=== PATIENT | male | born 1960 | race Caucasian/White ===

== ENCOUNTER 2018-05-31 10:55 | Inpatient (IN) ==
[2018-05-31] MEDS ORDERED: Dextrose 5%/NaCl 0.9% Inj 1,000 ML IV.CONT SCH (13:30)
[2018-05-31] MEDS ORDERED: Sodium Phosphate Inj 15 MMOL in Sodium Chlor 0.9% Inj 100 ML IV.SIG PRN (13:30)
[2018-05-31] MEDS ORDERED: Potassium Chlor 20 mEq Premix 20 MEQ/100 ML PIGGYBACK IV.SIG PRN ×6 (13:30)
[2018-05-31] MEDS ORDERED: Potassium Chlor 40 mEq Premix 40 MEQ/100 ML PIGGYBACK IV.SIG PRN ×2 (13:30)
[2018-05-31] MEDS ORDERED: Sod Chloride 0.9% Inj 1,000 ML IV.CONT SCH (13:30)
[2018-05-31] MEDS ORDERED: Insulin Regular (For Infusion) 100 UNIT in Sodium Chlor 0.9% Inj 99 ML IV.CONT PRN (13:30)
--- NOTE | 2018-05-31 13:39 | P.HP ---
History of Present Illness Inpatient Certification: I certify that the inpatient services were ordered in accordance with Medicare regulations governing the order. This includes certification that hospital inpatient services are reasonable and necessary and in the case of services not specified as inpatient-only under 42 CFR 419.22(n), that they are appropriately provided as inpatient services in accordance to with the 2-midnight benchmark under 43 CFR 412.3(e) Estimated Total Length of Stay (Days): 2 Plans for Post Hospital Care: Home [facility] - History History Provided By: Patient - Medical History Medical History: Medical History (Last Updated 05/31/18 @ 11:41 by Micheline Ceron RN) CAD (coronary artery disease) E. coli infection Heart attack High cholesterol Hypertension - Surgical History Surgical History: Surgical History (Last Updated 05/31/18 @ 11:41 by Micheline Ceron RN) History of knee surgery History of neck surgery - Tobacco History Second Hand Smoke Exposure: Yes Smoking Status: Current every day smoker Tobacco Type: Cigarettes - Alcohol History How Often Do You Have a Drink Containing Alcohol: Never - Substance Use History Substance History: Active Abuse Medications and Allergies Allergies Allergy/AdvReac Type Severity Reaction Status Date / Time No Known Allergies Allergy Verified 05/31/18 11:24 Home Medications Medication Instructions Recorded Confirmed Type hydrocodone-acetaminophen 1 tab PO Q6H 05/31/18 05/31/18 History lisinopril 5 mg PO DAILY 05/31/18 05/31/18 History pravastatin 20 mg PO DAILY 05/31/18 05/31/18 History sertraline 50 mg PO DAILY 05/31/18 05/31/18 History tamsulosin [Flomax] 0.4 mg PO DAILY 05/31/18 05/31/18 History Caprini VTE Risk Assessment Caprini Risk Assessment Model: Point Value = 1 Point Value = 2 Point Value = 3 Point Value = 5 Age 41-60 Minor surgery BMI > 25 kg/m2 Swollen legs Varicose veins or History of unexplained or recurrent spontaneous Oral contraceptives or hormone replacement Sepsis (< 1 month) Serious lung disease, including pneumonia (< 1 month) Abnormal pulmonary function Acute myocardial infarction Congestive heart failure (< 1 month) History of inflammatory bowel disease Medical patient at bed rest Age 61-74 Arthroscopic surgery Major open surgery (> 45 min) Laparoscopic surgery (> 45 min) Malignancy Confined to bed (> 72 hours) Immobilizing plaster cast Central venous access Age >= 75 History of VTE Family history of VTE Factor V Leiden Prothrombin [id number] Lupus anticoagulant Anticardiolipin antibodies Elevated serum homocysteine Heparin-induced thrombocytopenia Other congenital or acquired thrombophilia Stroke (< 1 month) Elective arthroplasty Hip, pelvis, or leg fracture Acute spinal cord injury (< 1 month) Prophylaxis Regimen: Total Risk Factor Score Risk Level Prophylaxis Regimen 0-1 Low Early ambulation 2 Moderate Order ONE of the following: *Sequential Compression Device (SCD) *Heparin 5000 units SQ BID 3-4 Higher Order ONE of the following medications: *Heparin 5000 units SQ TID *Enoxaparin/Lovenox 40 mg SQ daily (WT < 150 kg, CrCl > 30 mL/min) *Enoxaparin/Lovenox 30 mg SQ daily (WT < 150 kg, CrCl > 10-29 mL/min) *Enoxaparin/Lovenox 30 mg SQ BID (WT < 150 kg, CrCl > 30 mL/min) AND/OR *Sequential Compression Device (SCD) 5 or more Highest Order ONE of the following medications: *Heparin 5000 units SQ TID (Preferred with Epidurals) *Enoxaparin/Lovenox 40 mg SQ daily (WT < 150 kg, CrCl > 30 mL/min) *Enoxaparin/Lovenox 30 mg SQ daily (WT < 150 kg, CrCl > 10-29 mL/min) *Enoxaparin/Lovenox 30 mg SQ BID (WT < 150 kg, CrCl > 30 mL/min) AND *Sequential Compression Device (SCD)
[2018-05-31] MEDS ORDERED: Bisacodyl 10 MG Supp RECTAL PRN (17:42)
[2018-05-31] MEDS ORDERED: Acetaminophen 325 MG Tablet PO PRN (17:42)
[2018-05-31] MEDS ORDERED: Dextrose 50% in Water 50 ML Vial IV.PUSH PRN (17:44)
[2018-05-31] MEDS ORDERED: Enoxaparin Inj 40 MG/0.4 ML Syringe SQ SCH (20:00)
[2018-05-31] MEDS ORDERED: Insulin Detemir Inj 1,000 UNIT/10 ML Vial SQ SCH (21:00)
[2018-05-31 21:06] LABS: Chloride 101 meq/L (98-107); Potassium 3.9 meq/L (3.5-5.1); Sodium 135 meq/L (136-145)
[2018-05-31] MEDS: Insulin NovoLOG Aspart Correctional Sugar Inj SQ SCH (21:09)
[2018-05-31] MEDS: Sod Chloride 0.9% Inj 1,000 ML IV.CONT SCH (21:10)
[2018-05-31 21:20] LABS: Anion Gap 12 meq/L (5-15); Beta Hydroxybutyric Acid 4.03 mmol/L (0.00-0.39); Blood Urea Nitrogen 8 mg/dL (7-18); Calcium 7.4 mg/dL (8.5-10.1); Carbon Dioxide 21.7 meq/L (21.0-32.0); Glomerular Filtration Rate Greater Than 89 mL/min (>89); Glucose,Random 323 mg/dL (74-106); Magnesium 1.7 mg/dL (1.5-2.5)
[2018-05-31 21:51] LABS: Calcium-Albumin Corrected 8.2 mg/dL (8.5-10.1); Total Protein 5.6 g/dL (6.4-8.2)
[2018-06-01] MEDS: Mag Sulf 1 gm/100 ml Premix 100 ML IV.SIG SCH ×2 (00:09→00:50)
[2018-06-01] MEDS ORDERED: Chlorhexidine Gluconate 2% 1 Pack (2 Cloths) TOPICAL PRN (04:00)
[2018-06-01] MEDS ORDERED: Chlorhexidine Gluconate 2% 1 Pack (2 Cloths) TOPICAL SCH (04:00)
[2018-06-01 05:05] VITALS: O2SAT 98
[2018-06-01] MEDS: Sod Chloride 0.9% Inj 1,000 ML IV.CONT SCH (05:13)
[2018-06-01 06:02] LABS: Chloride 101 meq/L (98-107); Potassium 3.5 meq/L (3.5-5.1); Sodium 134 meq/L (136-145)
[2018-06-01 06:14] LABS: Anion Gap 8 meq/L (5-15); Blood Urea Nitrogen 6 mg/dL (7-18); Calcium 7.2 mg/dL (8.5-10.1); Carbon Dioxide 25.4 meq/L (21.0-32.0); Glomerular Filtration Rate Greater Than 89 mL/min (>89); Glucose,Random 262 mg/dL (74-106)
[2018-06-01 06:59] LABS: Total Protein 5.6 g/dL (6.4-8.2)
[2018-06-01] MEDS: Insulin NovoLOG Aspart Correctional Sugar Inj SQ SCH ×2 (08:17→11:57)
[2018-06-01 09:40] VITALS: TEMP 98.3
[2018-06-01 13:07] VITALS: PULSE 72
--- NOTE | 2018-06-01 13:19 | P.HP ---
History of Present Illness Service: Hospitalist Primary Care Physician: UNKNOWN Chief Complaint: Generalized weakness. History of Present Illness: Mr. Marie is a 57-year-old male with a history of CAD, diabetes mellitus, hypertension and chronic back pain who presented to the emergency department in [place] due to generalized weakness. He was found to have DKA with blood glucose over 500. Patient did not have any chest pain, abdominal pain, shortness of breath or fever or chills. Patient was not transferred to [place] until evening and we were not able to see patient on 05/31/2018. Patient was seen in the morning on 06/01/2018. At the time of this interview, patient is doing well. He is tolerating diet well. Denies any acute concerns. He has an appointment with his primary care provider in a week. He would like to go home. Past medical history: CAD, diabetes mellitus, chronic back pain, hypertension Past surgical history: Knee surgery, cervical fusion Social history: Patient continues to smoke but cutting down to 2 cigarettes a day. Denies using any illicit drugs or alcohol. Family history: Dad had ESRD, mother had cancer. Inpatient Certification: I certify that the inpatient services were ordered in accordance with Medicare regulations governing the order. This includes certification that hospital inpatient services are reasonable and necessary and in the case of services not specified as inpatient-only under 42 CFR 419.22(n), that they are appropriately provided as inpatient services in accordance to with the 2-midnight benchmark under 43 CFR 412.3(e) Estimated Total Length of Stay (Days): 2 Plans for Post Hospital Care: Home Review of Systems All other systems reviewed negative except as stated in HPI [facility] - History History Provided By: Patient - Medical History Medical History: Medical History (Last Reviewed 06/01/18 @ 14:02 by Lilia Marks DO) CAD (coronary artery disease) E. coli infection Heart attack High cholesterol Hypertension - Surgical History Surgical History: Surgical History (Last Reviewed 06/01/18 @ 14:02 by Lilia Marks DO) History of knee surgery History of neck surgery - Tobacco History Second Hand Smoke Exposure: No Tobacco Use In Past 30 Days: No Smoking Status: Current every day smoker Tobacco Type: Cigarettes - Alcohol History How Often Do You Have a Drink Containing Alcohol: Never - Substance Use History Substance History: Active Abuse Medications and Allergies Active Medications: Active Medications Acetaminophen (Tylenol) 650 mg PO Q4H PRN PRN Reason: Headache, fever, pain 1-4 Last Admin: 06/01/18 01:13 Dose: 650 mg Al Hydroxide/Mg Hydroxide (Milk Of Magnesia Liq) 30 ml PO Q12H PRN PRN Reason: Mild Constipation Bisacodyl (Dulcolax Supp) 10 mg RECTAL DAILY PRN PRN Reason: SEVERE CONSITIPATION Chlorhexidine Gluconate (Chlorhexidine 2% Cloth) 3 pack TOPICAL DAILY@0400 [facility] Stop: 06/06/18 03:59 Last Admin: 06/01/18 05:10 Dose: 3 pack Chlorhexidine Gluconate (Chlorhexidine 2% Cloth) 3 pack TOPICAL DAILY@0400 PRN PRN Reason: Extra cloth needed Stop: 06/06/18 03:59 Dextrose (D50w Vial) 50 ml IV.PUSH UNSCH PRN PRN Reason: PER HYPOGLYCEMIA PROTOCOL Enoxaparin Sodium (Lovenox Inj) 40 mg SQ Q24H [facility] Last Admin: 05/31/18 21:08 Dose: 40 mg Glucagon (Glucagon Inj) 1 mg OTHER PRN PRN PRN Reason: for Hypoglycemia Protocol Sodium Chloride (Ns Inj) 1,000 mls @ 100 mls/hr IV.CONT .Q10H [facility] Stop: 06/01/18 17:44 Last Admin: 06/01/18 05:13 Dose: 100 mls/hr Insulin Aspart (Novolog Insulin Correctional Sugar Inj) 0 unit SQ ACHS [facility]; Protocol Last Admin: 06/01/18 11:57 Dose: 7 unit Insulin Detemir (Levemir Inj) 7 unit SQ HS [facility] Last Admin: 05/31/18 21:08 Dose: 7 unit Lactulose (Lactulose Liq) 30 ml PO DAILY PRN PRN Reason: SEVERE CONSITIPATION Ondansetron HCl (Zofran Inj) 4 mg IV.PUSH Q6H PRN PRN Reason: NAUSEA OR VOMITING Sennosides (Senokot) 17.2 mg PO Q12H PRN PRN Reason: Moderate Constipation Allergies Allergy/AdvReac Type Severity Reaction Status Date / Time No Known Allergies Allergy Verified 05/31/18 11:24 Home Medications Medication Instructions Recorded Confirmed Type hydrocodone-acetaminophen 1 tab PO Q6H 05/31/18 05/31/18 History lisinopril 5 mg PO DAILY 05/31/18 05/31/18 History pravastatin 20 mg PO DAILY 05/31/18 05/31/18 History sertraline 50 mg PO DAILY 05/31/18 05/31/18 History tamsulosin [Flomax] 0.4 mg PO DAILY 05/31/18 05/31/18 History Exam Vital signs: Vital Signs 05/31/18 20:00 06/01/18 00:00 06/01/18 04:00 Temperature 98.2 F 97.8 F 98.4 F Pulse Rate 70 62 66 Respiratory Rate 20 20 20 Blood Pressure 106/64 105/65 114/71 Pulse Oximetry 96 99 98 06/01/18 07:00 06/01/18 08:00 06/01/18 08:06 Temperature 98.3 F Pulse Rate 70 64 70 Respiratory Rate 14 10 L 10 L Blood Pressure 126/83 126/83 Pulse Oximetry 06/01/18 09:59 Temperature Pulse Rate 72 Respiratory Rate 17 Blood Pressure 110/66 Pulse Oximetry Intake & Output 05/31/18 06/01/18 06/01/18 18:59 06:59 18:59 Intake Total 192 / 1920 Balance 1920 / 1920 Weight 66.1 kg Intake: IV 1200 / 1200 NS Inj 1,000 ML @ 100 mls/hr IV 1000 / 1000 .CONT .Q10H [facility] Rx#:[id number] Magnesium Sulfate 1 gm/D5W 100 200 / 200 ml Premix 100 ML @ 100 mls/hr IV.SIG Q1H [facility] Rx#:[id number] Oral 720 / 720 Other: Post Void Residual 900 # Voids 3 Weight On Admission 66.1 kg Narrative: GENERAL: This is a well-nourished, well-developed patient, in no apparent distress. SKIN: No rashes, ecchymoses or lesions. Warm and dry. HEAD: Atraumatic. Normocephalic. No temporal or scalp tenderness. EYES: Pupils equal round and reactive. No injection or drainage. ENT: Nose without bleeding, purulent drainage or septal hematoma. Airway patent. NECK: Trachea midline. No lymphadenopathy. Supple, nontender, no meningeal signs. CARDIOVASCULAR: Regular rate and rhythm without murmurs, gallops, or rubs. No JVD. RESPIRATORY: Clear to auscultation. Breath sounds equal bilaterally. No wheezes , rales, or rhonchi. GASTROINTESTINAL: Abdomen soft, non-tender, nondistended. No guarding. MUSCULOSKELETAL: Extremities without clubbing, cyanosis, or edema. NEUROLOGICAL: Awake and alert. Cranial nerves II through XII intact. No focal neurological deficits. Normal speech. Results - Labs CBC & Chem 7: 06/01/18 05:35 Labs: Laboratory Results - last 24 hr 05/31/18 05/31/18 06/01/18 20:20 22:40 05:35 Sodium 135 L 134 L Potassium 3.9 3.5 Chloride 101 101 Carbon Dioxide 21.7 25.4 Anion Gap 12 8 BUN 8 6 L Creatinine 0.58 L 0.60 Estimated GFR Greater than 89 Greater than 89 POC Glucose Random Glucose 323 H 262 H Calcium 7.4 L* 7.2 L* Prot Corrected Calcium 8.2 L 8.0 L Magnesium 1.7 Total Protein 5.6 L 5.6 L Beta-Hydroxybutyric Acd 4.03 H D Nasal Screen MRSA (PCR) Not detected 06/01/18 06/01/18 08:02 11:52 Sodium Potassium Chloride Carbon Dioxide Anion Gap BUN Creatinine Estimated GFR POC Glucose 217 H 325 H Random Glucose Calcium Prot Corrected Calcium Magnesium Total Protein Beta-Hydroxybutyric Acd Nasal Screen MRSA (PCR) Caprini VTE Risk Assessment Caprini VTE Risk Assessment: No/Low Risk (score <= 1) Caprini Risk Assessment Model: Point Value = 1 Point Value = 2 Point Value = 3 Point Value = 5 Age 41-60 Minor surgery BMI > 25 kg/m2 Swollen legs Varicose veins or History of unexplained or recurrent spontaneous Oral contraceptives or hormone replacement Sepsis (< 1 month) Serious lung disease, including pneumonia (< 1 month) Abnormal pulmonary function Acute myocardial infarction Congestive heart failure (< 1 month) History of inflammatory bowel disease Medical patient at bed rest Age 61-74 Arthroscopic surgery Major open surgery (> 45 min) Laparoscopic surgery (> 45 min) Malignancy Confined to bed (> 72 hours) Immobilizing plaster cast Central venous access Age >= 75 History of VTE Family history of VTE Factor V Leiden Prothrombin [id number] Lupus anticoagulant Anticardiolipin antibodies Elevated serum homocysteine Heparin-induced thrombocytopenia Other congenital or acquired thrombophilia Stroke (< 1 month) Elective arthroplasty Hip, pelvis, or leg fracture Acute spinal cord injury (< 1 month) Prophylaxis Regimen: Total Risk Factor Score Risk Level Prophylaxis Regimen 0-1 Low Early ambulation 2 Moderate Order ONE of the following: *Sequential Compression Device (SCD) *Heparin 5000 units SQ BID 3-4 Higher Order ONE of the following medications: *Heparin 5000 units SQ TID *Enoxaparin/Lovenox 40 mg SQ daily (WT < 150 kg, CrCl > 30 mL/min) *Enoxaparin/Lovenox 30 mg SQ daily (WT < 150 kg, CrCl > 10-29 mL/min) *Enoxaparin/Lovenox 30 mg SQ BID (WT < 150 kg, CrCl > 30 mL/min) AND/OR *Sequential Compression Device (SCD) 5 or more Highest Order ONE of the following medications: *Heparin 5000 units SQ TID (Preferred with Epidurals) *Enoxaparin/Lovenox 40 mg SQ daily (WT < 150 kg, CrCl > 30 mL/min) *Enoxaparin/Lovenox 30 mg SQ daily (WT < 150 kg, CrCl > 10-29 mL/min) *Enoxaparin/Lovenox 30 mg SQ BID (WT < 150 kg, CrCl > 30 mL/min) AND *Sequential Compression Device (SCD) Assessment and Plan - Plan Mr. Marie is a 57-year-old male with a history of CAD, diabetes mellitus, hypertension who presented to the emergency department in [place] due to generalized weakness. He was diagnosed with diabetic acidosis. He was given subcutaneous insulin in [place]. His anion gap closed. He was transferred to [place] in the evening on 05/31/2018. Diabetic ketoacidosis Ketoacidosis resolved. Anion gap closed. Electrolytes are within reasonable range. Patient is eating and drinking well. While in the hospital we provided long-acting and short-acting insulin. Patient does not take any diabetic medications. We discussed at length regarding diabetic medications. Since patient is not enthusiastic about insulin, we recommended metformin 500 mg twice daily and glimepiride 2 mg daily to start with. Patient will follow up with his PCP to titrate these medications. CAD Hypertension Chronic back pain Continue home medications. Patient takes aspirin as well as cholesterol medications at home. Full code. Ambulation. Discharge patient to home Condition on discharge: Improved Diabetic diet as tolerated Ad Jina activity Rx written: Metformin 500 mg p.o. twice daily Glimepiride 2 mg every morning Accu-Chek glucometer and strips and lancets. Follow-up with primary care physician within 7-10 days.
[2018-06-01 13:31] VITALS: BP 119/71; RESP 22
== END 2018-06-01 14:25 | disposition home or self-care (01) ==
LOC: PHEDDLT 10:55 → PHICU 18:35
PROVIDERS: ADMIT Hospitalist; ATTEND Hospitalist